=== PATIENT | male | born 1955 | race American Indian/Alaskan Native ===

== ENCOUNTER → 2018-03-25 | Outpatient (CLI) | payer OTHER ==
[~2018-03-25] MED LIST: GABA100 PO; METF500 PO; METF500C; OXYC10ER PO; OXYC15ER PO; Oxycodone HCl20 M1 PO; Prilosec Otc20 MG PO; SERT100; SERT100 PO
== END | disposition home or self-care (01) ==
LOC: LAB SHORT 14:14 → LAB 14:14
DX: Z51.81 Encounter for therapeutic drug level monitoring (principal); G89.4 Chronic pain syndrome; Z79.899 Other long term (current) drug therapy
CPT/HCPCS: G0480

== ENCOUNTER 2019-03-04 08:14 | Day surgery (SDC) | payer OTHER ==
[~2019-03-04] VITALS: Ht 185.4 cm; Wt 89.7 kg
[~2019-03-04 08:14] MED LIST changes: +TRAZ150T57
== END 2019-03-04 11:36 | disposition home or self-care (01) ==
LOC: ORSCSDS 08:14
PROVIDERS: Otolaryngology
PROC: 09BKXZX Excision of Nasal Mucosa and Soft Tissue, External Approach, Diagnostic (ICD-10-PCS; principal; 2019-03-04 09:30)
PROC: 0CJS8ZZ Inspection of Larynx, Via Natural or Artificial Opening Endoscopic (ICD-10-PCS; principal; 2019-03-04 09:30)
PROC: 0CB3XZX Excision of Soft Palate, External Approach, Diagnostic (ICD-10-PCS; principal; 2019-03-04 09:30)
DX: D10.39 Benign neoplasm of other parts of mouth (principal); B97.7 Papillomavirus as the cause of diseases classified elsewhere; R13.10 Dysphagia, unspecified; B19.20 Unspecified viral hepatitis C without hepatic coma; E11.9 Type 2 diabetes mellitus without complications; Z79.899 Other long term (current) drug therapy; Z87.891 Personal history of nicotine dependence; E66.01 Morbid (severe) obesity due to excess calories; Z68.36 Body mass index [BMI] 36.0-36.9, adult
CPT/HCPCS: 82947; 88305; J1100; J2250; J2405; J2704; J2710; J3010; J7120

== ENCOUNTER 2024-06-30 07:24 | Day surgery (SDC) | payer OTHER ==
[~2024-06-30] VITALS: Ht 188 cm; Wt 88.0 kg
[2024-06-30 10:30] VITALS: BP 118/71
== END 2024-06-30 11:40 | disposition home or self-care (01) ==
LOC: MHTC 07:24
DX: R94.39 Abnormal result of other cardiovascular function study (principal); R07.89 Other chest pain; I50.20 Unspecified systolic (congestive) heart failure; E11.9 Type 2 diabetes mellitus without complications; Z79.82 Long term (current) use of aspirin; Z79.899 Other long term (current) drug therapy